=== PATIENT | female | born 1990 | race Caucasian/White ===

== ENCOUNTER 2019-11-29 16:48 | Inpatient (IN) | payer OTHER ==
[~2019-11-29] VITALS: Ht 175.3 cm; Wt 74.0 kg
[~2019-11-29 16:48] MED LIST: DIPATR PO; DOXY100 PO; HYDACE5 PO; IBUP800 PO; METR500 PO; MULVIT PO; PROM25 PO; RXHYDACE PO; Vibramycin100 MG PO
[2019-11-29] MEDS ORDERED: SUBOXONE 8 MG-1 EACH PO (17:08)
[2019-11-29 19:30] LABS: BASOPHILS ABSOLUTE AUTO 0.05 K/mm3 (0.00-0.23); BASOPHILS PERCENT AUTO 0 % (0-2); EOSINOPHILS ABSOLUTE AUTO 0.02 K/mm3 (0.00-0.68); EOSINOPHILS PERCENT AUTO 0 % (0-6); Hematocrit 35.5 % (33.0-51.0); Hemoglobin 11.6 g/dL (11.5-16.0); IMMATURE GRAN ABSOLUTE AUTO 0.06 K/mm3 (0.00-0.10); IMMATURE GRAN PERCENT AUTO 1 % (0-1); LYMPHOCYTES ABSOLUTE AUTO 2.29 K/mm3 (0.84-5.20); LYMPHOCYTES PERCENT AUTO 20 % (21-46); MONOCYTES ABSOLUTE AUTO 0.61 K/mm3 (0.16-1.47); MONOCYTES PERCENT AUTO 5 % (4-13); Mean Corpuscular HGB 28.9 pg (26.0-34.0); Mean Corpuscular HGB Conc 32.7 g/dL (31.5-36.5); Mean Corpuscular Volume 89 fL (80-100); NEUTROPHILS PERCENT AUTO 74 % (41-73); Platelet Count 217 K/mm3 (150-400); RDW Coefficient Variation 12.4 % (11.7-14.2); RDW Standard Deviation 40.4 fL (35.1-46.3); Red Blood Cell Count 4.01 M/mm3 (3.80-5.20); White Blood Cell Count 11.63 K/mm3 (4.00-11.30)
[2019-11-29 20:23] LABS: PCO2 Cord - Arterial 64.1 mmHg (40-50); PO2 Cord - Arterial > 13 mmHg (16-20); pH Cord - Arterial 7.24 (7.28-7.35)
[2019-11-29 20:25] LABS: PCO2 Cord - Venous 45.8 mmHg (40-50); PO2 Cord - Venous 21.8 mmHg (28-32); pH Umbilical Cord - Venous 7.32 (7.26-7.35)
[2019-11-30 06:24] LABS: BASOPHILS ABSOLUTE AUTO 0.03 K/mm3 (0.00-0.23); BASOPHILS PERCENT AUTO 0 % (0-2); EOSINOPHILS ABSOLUTE AUTO 0.05 K/mm3 (0.00-0.68); EOSINOPHILS PERCENT AUTO 0 % (0-6); IMMATURE GRAN ABSOLUTE AUTO 0.04 K/mm3 (0.00-0.10); IMMATURE GRAN PERCENT AUTO 0 % (0-1); LYMPHOCYTES ABSOLUTE AUTO 3.01 K/mm3 (0.84-5.20); LYMPHOCYTES PERCENT AUTO 24 % (21-46); MONOCYTES ABSOLUTE AUTO 0.73 K/mm3 (0.16-1.47); MONOCYTES PERCENT AUTO 6 % (4-13); Mean Corpuscular HGB 29.2 pg (26.0-34.0); Mean Corpuscular HGB Conc 33.3 g/dL (31.5-36.5); Mean Corpuscular Volume 88 fL (80-100); NEUTROPHILS ABSOLUTE AUTO 8.57 K/mm3 (1.96-9.15); NEUTROPHILS PERCENT AUTO 69 % (41-73); RDW Coefficient Variation 12.5 % (11.7-14.2); RDW Standard Deviation 39.8 fL (35.1-46.3); Red Blood Cell Count 3.77 M/mm3 (3.80-5.20); White Blood Cell Count 12.43 K/mm3 (4.00-11.30)
[2019-11-30 06:44] LABS: Mean Platelet Volume 10.5 fL (9.1-12.4); Platelet Count 172 K/mm3 (150-400)
--- NOTE | 2019-11-30 09:08 | NUR ---
RN ROUNDED TO HELP W/ . PT STATES SHE HAD HER DAUGHTER 11 YEARS AGO AND HAD A LOT OF TROUBLE BRINGING IN HER MILK SUPPLY. INSTRUCTED FOB TO BRING IN PUMP FROM HOME AND FOR PT TO PUMP ON HIGHEST COMFORTABLE SETTING FOR 10 MINUTES AFTER EACH FEED. INSTRUCTED ON PUMPED MILK EXPECTATION DURING FIRST FEW DAYS OF NB LIFE. HELPED TO LATCH NB TO BREAST, INSTRUCT/DEMO WIDENING LATCH, CORRECT POSITIONING AND NIPPLE SHAPE AFTER FEEDS. INSTRUCTED PT ON HAND EXPRESSION. PT DENIES HISTORY OF PCOS, HYPOTHRYROID, OR BREAST OR CHEST SURGERY.
[2019-12-02] MEDS ORDERED: OXYACE7.5T PO (13:10)
[2019-12-02] MEDS ORDERED: IBUP800 (13:10)
--- NOTE | 2019-12-02 15:11 | NUR ---
Printed instructions and reviewed w/pt. Questions answered. Will d/c to boarder status with SO back with prescriptions.
--- NOTE | 2019-12-02 17:26 | NUR ---
No acute changes t/o shift. Pt denies additional needs or concerns prior to d/c to boarder status. SO states they will try to take a walk in hallway soon. pt d/c'd to boarder status.
== END 2019-12-02 17:15 | disposition home or self-care (01) | DRG 788 ==
LOC: OBS 16:48 → BC 16:48 → OBS 17:02 → BC 17:03
PROVIDERS: Obstetrics & Gynecology; ADMIT Nurse Practitioner Obstetrics & Gynecology
PROC: 10D00Z1 Extraction of Products of Conception, Low, Open Approach (ICD-10-PCS; principal; 2019-11-29 20:15)
DX: O76 Abnormality in fetal heart rate and rhythm complicating labor and delivery (principal); O48.0 Post-term pregnancy; Z3A.40 40 weeks gestation of pregnancy; Z37.0 Single live birth; O69.1XX0 Labor and delivery complicated by cord around neck, with compression, not applicable or unspecified
CPT/HCPCS: 36415; 82803; 85025; 86850; 86870; 86900; 86901; 86920; A9270-GY; J0690; J1885; J2001; J2270; J2590; J2765; J7120; Q2038; U0003